=== PATIENT | male | born 1950 | race Caucasian/White ===

== ENCOUNTER 2018-02-19 06:23 | Day surgery (SDC) | payer BC ==
[~2018-02-19] VITALS: Ht 182.9 cm; Wt 97.3 kg
[2018-02-19 06:31] VITALS: BP 117/75
[2018-02-19] MEDS ORDERED: LOSA1TAB37 PO (06:51)
[2018-02-19] MEDS ORDERED: SODIUM CHLORIDE 0.9% 1000ML 1,000 ML IV ONE (07:04)
[2018-02-19] MEDS ORDERED: PROPOFOL 10 MG/ML 20ML VIAL IV ONE ×2 (07:22→08:00)
[2018-02-19] MEDS ORDERED: FENTANYL CITRATE PF 50 MCG/1 ML 2ML VIAL ONE (07:22)
[2018-02-19] MEDS ORDERED: LIDOCAINE HCL 2% 20ML ONE (07:22)
[2018-02-19] MEDS ORDERED: GLYCOPYRROLATE 0.2 MG/ML 5 ML VIAL ONE (07:22)
[2018-02-19] MEDS ORDERED: PHENYLEPHRINE HCL 10 MG/ML 1ML VIAL IV ONE (07:47)
[2018-02-19 08:10] VITALS: BP 87/46
== END 2018-02-19 09:00 | disposition home or self-care (01) ==
LOC: ENDO 06:23 → DAH 06:23 → EEVIPCON 07:30 → ENDO 09:00
PROVIDERS: ATTEND Internal Medicine Gastroenterology
DX: Z12.11 Encounter for screening for malignant neoplasm of colon (principal); D12.3 Benign neoplasm of transverse colon; Z86.010 Personal history of colon polyps; I10 Essential (primary) hypertension; Z79.899 Other long term (current) drug therapy; Z68.27 Body mass index [BMI] 27.0-27.9, adult; K56.2 Volvulus
CPT/HCPCS: 45385; 88305; A4606; J2370; J2704 ×2; J3010; J3490 ×2; J7030